=== PATIENT | male | born 1955 ===

== ENCOUNTER 2018-08-01 07:31 | Day surgery (SDC) | payer OTHER ==
[~2018-08-01] VITALS: Ht 177.8 cm; Wt 117.9 kg
[2018-08-01] VITALS (9 sets, daily range): BP systolic 120–141; BP diastolic 83–93
--- NOTE | 2018-08-01 07:37 | Anethesia Preoperative Eval ---
Anesthesia Pre-op PMH/ROS General Date of Evaluation: Aug 01, 2018 Time of Evaluation: 07:37 Anesthesiologist: veronique ASA Score: ASA 3 Mallampati Score Class I : Soft palate, uvula, fauces, pillars visible Class II: Soft palate, uvula, fauces visible Class III: Soft palate, base of uvula visible Class IV: Only hard plate visible Mallampati Classification: Class II Surgeon: javier Diagnosis: gerd Surgical Procedure: egd Anesthesia History: none Social History: smoking - former smoker Family History: no anesthesia problems Allergies: Coded Allergies: No Known Allergies (Verified Allergy, Unknown, 03/14/09) Medications: see eMAR Patient NPO?: Yes Past Medical History Cardiovascular: Reports: HTN Pulmonary: Reports: MANUEL Gastrointestinal/Genitourinary: Reports: GERD Endocrine: Reports: DM Musculoskeletal/Integumentary: Reports: OA Other: obesity Anesthesia Pre-op Phys. Exam Physician Exam Constitutional: NAD Neurologic: CN 2-12 intact Cardiovascular: RRR Respiratory: CTA Gastrointestinal: S/NT/ND Airway Exam Mallampati Score: Class II MO: limited Neck: flexible TMD: 2fb ROM: limited Anesthesia Pre-op A/P Risk Assessment & Plan Assessment: asa3 Plan: mac Status Change Before Surgery: No Pre-Antibiotics Drug: Rosario Argueta MD Aug 01, 2018 07:37
[2018-08-01] MEDS ORDERED: fentaNYL 100 mcg/2 mL IV PRN (07:45)
[2018-08-01] MEDS ORDERED: DiphenhydrAMINE 50mg/ml Inj IVP PRN (07:45)
[2018-08-01] MEDS ORDERED: Midazolam 2mg/2ml Inj IVP PRN (07:45)
[2018-08-01] MEDS ORDERED: Atropine Inj 1mg/10ml Syr IV PRN (07:45)
[2018-08-01] MEDS ORDERED: METFORMIN HCL1000 M1 ORAL (08:13)
[2018-08-01] MEDS ORDERED: GLIPIZIDE5 MG ORAL (08:15)
[2018-08-01] MEDS ORDERED: LISINOPRIL5 MG ORAL (08:16)
[2018-08-01] MEDS ORDERED: ATORVASTATIN CA40 MG ORAL (08:16)
[2018-08-01] MEDS ORDERED: Propofol 200mg/20ml IV ONE (08:36)
[2018-08-01] MEDS ORDERED: Lidocaine 1% MPF 10mg/ml 5ml ONE (08:36)
[2018-08-01] MEDS ORDERED: LR 1000ml ONE (08:36)
--- NOTE | 2018-08-01 08:40 | Short Stay Surgery H&P ---
History of Present Illness History of Present Illness Chief Complaint abdominal pains/GERDs HPI Ludwig Madrigal is a 63 year old male who was admitted on for GERD/abdominal pains Patient History Allergies: Coded Allergies: No Known Allergies (Verified Allergy, Unknown, 03/14/09) PAST MEDICAL HISTORY: (1) Hypertension (2) Diabetes (3) Hyperlipidemia Medication History Scheduled Atorvastatin Calcium* (Atorvastatin Calcium*), 40 MG ORAL DAILY, (Reported) Glipizide* (Glipizide*), 5 MG ORAL THREE TIMES A DAY, (Reported) Lisinopril (Lisinopril*), 5 MG ORAL DAILY, (Reported) Metformin Hcl* (Metformin Hcl*), 1,000 MG ORAL BID, (Reported) Review of Systems Cardiovascular: Reports: no symptoms Respiratory: Reports: no symptoms Skeletal: Reports: trauma Gastrointestinal: Reports: gastro esophageal reflux disease Genitourinary: Reports: no symptoms Neurologic: Reports: no symptoms Endocrine: Reports: diabetes - type 2 Hematologic: Reports: no symptoms Physical Exam Vital Signs Last Vital Signs Date Time Temp Pulse Resp B/P (MAP) Pulse Ox O2 Delivery O2 Flow Rate FiO2 08/01/18 08:17 Room Air Skin: normal HENT: normal Heart: normal Lungs: normal Abdomen: normal Extremities: normal Genitourinary: normal Plan Plan of Care Upper Gi endoscopy and biopsy. Preop Interventions None. Summary of Findings see the reports Attestation Are the patient's medical conditions optimized for surgery? Attestation Response: yes Suraj Garcia MD Aug 01, 2018 08:40
--- NOTE | 2018-08-01 08:41 | Pre-Procedure Note/Attestation ---
Pre-Procedure Note/Attestation Complete Prior to Procedure Planned Procedure: left Procedure Narrative: Examination of the upper GI tract via endoscopy Indications for Procedure Pre-Operative Diagnosis: R/O Peptic Ulcer/Gastritis/Esophagitis Attestation I attest that I discussed the nature of the procedure; its benefits; risks and complications; and alternatives (and the risks and benefits of such alternatives ), prior to the procedure, with the patient (or the patient's legal auto service representative). I attest that, if there was a reasonable possibility of needing a blood transfusion, the patient (or the patient's legal auto service representative) was given the [facility] standardized written summary, pursuant to the [place] Blood Safety Act ([place] Health and Safety Code # 1645, as amended). I attest that I re-evaluated the patient just prior to the surgery and that there has been no change in the patient's H&P, except as documented below: Suraj Garcia MD Aug 01, 2018 08:41
--- NOTE | 2018-08-01 08:55 | Endoscopy Procedure Note ---
Endoscopy Procedure Note General Indication for Procedure: Abdominal pains/Epigastric pains/GERD Procedures Performed: EGD - Minimal gastritis of the antral/prepyloric area, biopsied;otherwise normal upper GI. Endoscopy. Specimen: yes Pt Tolerated Procedure Well: Yes Estimated Blood Loss: none Anesthesia Anesthesiologist: Dr. Kumar Anesthesia: moderate sedation Medications Medication Given: see anesthesia record Inserted Devices Implant(s) used?: No Quality Quality of Bowel Preparation: Excellent Was there any complications?: No GI Core Measures 50 yrs or older w/o bx or poly: Not Applicable 10yrs. F/U not recommended: Not Applicable If not recommended, why?: Med reason:<3 yrs.: System Reason:<3 yrs.: Suraj Garcia MD Aug 01, 2018 08:55
--- NOTE | 2018-08-01 08:56 | Discharge Instructions ---
Discharge Instructions Discharge Instructions Follow up with: See the doctor next week in the office. For Congestive Heart Failure Reminder Report to your physician any weight gain of 5 pounds or more in one week. Suraj Garcia MD Aug 01, 2018 08:56
--- NOTE | 2018-08-01 09:48 | Immediate Post-Op Evaluation ---
Immediate Post-Op Evalulation Immediate Post-Op Evalulation Procedure: egd w/bx Date of Evaluation: Aug 01, 2018 Time of Evaluation: 09:08 IV Fluids: 150ml lr Blood Products: none Estimated Blood Loss: negligible Blood Pressure Systolic: 124 Blood Pressure Diastolic: 83 Pulse Rate: 83 Respiratory Rate: 18 O2 Sat by Pulse Oximetry: 96 Temperature (Fahrenheit): 97.9 Pain Score (1-10): 0 Nausea: No Vomiting: No Complications none Patient Status: awake, reacts, patent Hydration Status: adequate Drug: Rosario Argueta MD Aug 01, 2018 09:48
--- NOTE | 2018-08-01 09:50 | 48 Hour Post Anesthesia Eval ---
Post Anesthesia Evaluation Procedure: egd w/bx Date of Evaluation: Aug 01, 2018 Time of Evaluation: 09:10 Blood Pressure Systolic: 120 0: 84 Pulse Rate: 85 Respiratory Rate: 18 Temperature (Fahrenheit): 97.9 O2 Sat by Pulse Oximetry: 96 Airway: patent Nausea: No Vomiting: No Pain Intensity: 0 Hydration Status: adequate Cardiopulmonary Status: stable Mental Status/LOC: patient returned to baseline Post-Anesthesia Complications: none Follow-up care needed: N/A Rosario Maurice MD Aug 01, 2018 09:50
--- NOTE | 2018-08-01 10:45 | Operative Note - Dictated ---
DATE OF OPERATION: 08/01/2018 SURGEON: Suraj Garcia M.D. PROCEDURE: Esophagogastroduodenoscopy with biopsy. PREOPERATIVE DIAGNOSES: Epigastric pain, abdominal pain, history of chronic gastroesophageal reflux. POSTOPERATIVE DIAGNOSIS: Mild antral gastritis in prepyloric area, which was biopsied. Otherwise, complete normal upper GI endoscopy. MEDICATION USED: Per Dr. Kumar, anesthesiologist. INSTRUMENT: GIF Olympus upper GI video endoscope. DESCRIPTION OF PROCEDURE: The patient after arriving an endoscopy unit, was told about risks and benefits of the procedure, which he accepted and signed informed consent. At this time, he was put on the left lateral decubitus position. After adequate IV sedation, the scope was gently passed through the cricopharyngeal area, was lodged into the upper esophagus and gradually advanced towards gastroesophageal junction. The entire length of the esophagus looked normal. No evidence of any inflammatory process, ulceration, exudation, etc., was found. GE junction also looked normal without any hiatal hernia or Munoz's. At this time, the scope was advanced into the stomach. Gastric cavity was distended and gradually the areas of the fundus and the body and the antrum were examined and the gastric mucosa looked completely normal except in the areas of the antrum and prepyloric area, which revealed there was mild erythema consistent with antritis and at this point, one biopsy from this area was obtained. There was however no evidence of ulcers, tumors, polyps, etc., in the stomach. Subsequently, the scope was passed through the pylorus. First and second portion of duodenum were found also to be completely normal. At this time, the scope was pulled out and the procedure was terminated. The patient tolerated the procedure well and left the endoscopy room in a good condition. Suraj Garcia M.D. DR: CONSTANTINO JOB#: [id number] CC:
--- NOTE | 2018-08-01 12:15 | Pre-op HX & Phy Repo 2 SIG ---
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 The patient was seen in the office some time ago and basically reported that he is experiencing pain over the upper part of the stomach and epigastric area with moderate to occasionally severe heartburn episodes. He reports that this situation happened after he was started on multiple medications including nonsteroidal anti-inflammatory agents subsequent to his work injury. He denied however having problem with swallowing. In the past, the patient had not been receiving any particular medication for heartburn including H2 blockers or proton pump inhibitors. He denied having any GI bleeding. However, as I mentioned, he has been treated with medications of nonsteroidal anti-inflammatory agents such as naproxen or ibuprofen for a long period of time subsequent to his work injury. 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 At this point, he had injuries in different parts of the body, but mostly in his right hip for which he had to undergo procedure surgery along with lower disc disease as well that he needed to have surgery for it as well. He has been seen by multiple physicians subsequent to his work injury as well. PAST MEDICAL HISTORY: Hypertension, hyperlipidemia, diabetes, and he also suffers from significant obesity consistent with morbid obesity and sleep apnea. SURGICAL HISTORY: Right hip replacement and umbilical hernia along with dorsal lumbar disc surgeries. ALLERGIES: None significant. HABITS: He drinks some whisky at occasions with minimal amount, but does not use illicit drugs also smoke cigarettes. MEDICATIONS: Currently atorvastatin, lisinopril, and metformin. REVIEW OF SYSTEMS: Basically history of present illness as I mentioned. He denies any chest pain, but has got breathing problems diagnosed with sleep apnea. PHYSICAL EXAMINATION: GENERAL: Alert, well-oriented gentleman. Does not seem to be in any acute distress. He looks well developed and nourished and quite obese consistent with morbid obesity. HEENT: Normocephalic. Pupils equal in size and reactive to light and accommodation. No conjunctival jaundice. Buccal cavity, tongue midline, well hydrated. No ulcers. NECK: Supple. No JVD, thyromegaly, or adenopathy. CHEST: Clear to auscultation and percussion. No rales or rhonchi. HEART: S1, S2 normal. Regular rhythm. No gallops or murmur. ABDOMEN: Quite obese, but soft. There is minimal tenderness over upper part of the abdomen, but no organomegaly. No palpable mass noted. Bowel sounds are present. EXTREMITIES: No pretibial edema, cyanosis, or clubbing. CENTRAL NERVOUS SYSTEM: Grossly normal. SKIN AND LYMPHATICS: Normal. PRELIMINARY PREOPERATIVE IMPRESSION: 1. Chronic gastroesophageal acid reflux, GERD, rule out NSAID-induced gastropathy, peptic ulcer disease, gastritis, esophagitis. 2. Hypertension. 3. Sleep apnea. 4. Morbid obesity. 5. Diabetes mellitus. 6. Hyperlipidemia. RECOMMENDATIONS: At this time, the applicant seems to be stable to undergo the procedure of upper GI endoscopy for which he has been scheduled. He understands the risks and benefits and will sign the consent. Said Bashir Garcia DR: ADRIANNE JOB#: [id number] CC:
== END 2018-08-01 09:55 | disposition home or self-care (01) ==
LOC: GAS 07:31
DX: K29.70 Gastritis, unspecified, without bleeding (principal); I10 Essential (primary) hypertension; E11.9 Type 2 diabetes mellitus without complications; Z79.84 Long term (current) use of oral hypoglycemic drugs; E78.5 Hyperlipidemia, unspecified; G47.33 Obstructive sleep apnea (adult) (pediatric); E66.01 Morbid (severe) obesity due to excess calories; Z87.891 Personal history of nicotine dependence; Z96.641 Presence of right artificial hip joint
CPT/HCPCS: 43239; 82962; J2704; 94003; 94150